=== PATIENT | female | born 1975 | race Caucasian/White ===

== ENCOUNTER 2018-06-12 07:46 | Outpatient (RCR) | payer MEDICAID, SELFPAY ==
--- NOTE | 2018-06-19 10:17 | HP.FCE ---
HP OT Functional Capacity Eval - Task Lift Floor (Occasional 1-33% of Day): 7lb Floor (Frequent 34-66% of Day): negligible Floor (Constant 67-100% of Day): negligible Floor PDL: Sedentary Knee (Occasional 1-33% of Day): 7lb Knee (Frequent 34-66% of Day): negligible Knee (Constant 67-100% of Day): negligible Knee PDL: Sedentary Waist (Occasional 1-33% of Day): 7lb Waist (Frequent 34-66% of Day): negligible Waist (Constant 67-100% of Day): negligible Waist PDL: Sedentary Shoulder (Occasional 1-33% of Day): 7lb Shoulder (Frequent 34-66% of Day): negligible Shoulder (Constant 67-100% of Day): negligible Shoulder PDL: Sedentary Overhead (Occasional 1-33% of Day): 7lb Overhead (Frequent 34-66% of Day): negligible Overhead (Constant 67-100% of Day): negligible Overhead PDL: Sedentary Comments: unemployed since Jul 31, 2016. after she was on light duty for 4 wks. Pt declined to carry more weight for lifting tasks. 7# was her max for all lifting when attempted more weight she attempted, but stated no more weight. See functional activities questionnaire for more details completed by pt. - Work Activity/Posture Bending: No Ablility (0% of day) Squatting: No Ablility (0% of day) Kneeling: No Ablility (0% of day) Reaching out: Constant Ability (67-100% of day) Reaching up: Constant Ability (67-100% of day) Sitting: Occasional Ability (1-33% of day) Walking: Frequent Ability (34-66% of day) Standing: Occasional Ability (1-33% of day) - Reference Duration Sedentary Sedentary Light Light Light Medium Medium Medium Heavy Very Heavy Heavy Occasional (0-33% of day) Frequent (34-66% of day) Constant (67-100% of day) 10 # Negligible Negligible 15 # 8 # Negligible 20 # 10# Negli. 35 # 18 # 7 # 50 # 25 # 10 # 75 # 100 # >100 # 38 # 50 # >50 # 15 # 20 # >20 # - Patient Information Height: 5 ft 4 in Weight:: 127.006 kg Hand Dominance: Right handed - Medical History Medical History Including Restrictions: Pt reports she has restrictions, not aloud to lift over 30lb, not suppose to be bending over, not suppose to sit for long periods, or walk long distances. Pt provided no written restrictions during the evaluation. Pt states the following medical hx: mild asthma, depression, broken tailbone June 2016, mild spinal stenosis, degenerative disc, several herniated disc, nerve impingement unspecified, fx R ankle . - Diagnoses Diagnoses: Pt seen for FCE with back pain as reason for visit. Pt states the following medical hx: mild asthma, depression, broken tailbone June 2016, mild spinal stenosis, degenerative disc, several herniated disc, nerve impingement unspecified, fx R ankle . - Symptoms Symptoms: Pt reports numbness in bilateral legs, back from dual ache to tightness pain. - Pain Pain: Medications: tramadol HCL 50MG, Fluoxetine HCL 20 MG, Bupropion HCL XL 300 MG. Pt states back from dual ache to tightness pain. 9/10 pain lower back sitting before physcial activity. 10/10 lower back pain with movement. 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 Unemployed since Jul 31, 2016. after she was on light duty for 4 wks. - ADLS ADLS: Pt reports she lives with sister in a two story house with 2 steps 1 handrail into main part of house then everything on main level of home. Sleeps in regular bed. Walk in shower, has shower chair available but doesn't use it, has grab bar she uses, std toilet seats with one grab bar. Independent with BADL's. Indep with meal prep tasks, sometimes has trouble lifting gallon of milk or putting a roast into oven if it's to heavy. Completes laundry independently on main level. AMB with rollator or cane in community, independently amb without device in house occassionally using furniture to walk. Has cane available. Drives. Pt reports she is uncomfortable to sit as passanger in car. Pt states she is able to get in/out of [place] using handle bars and side rails to assist her to go out in community. Will go to grocery store alone occassionally but typically has someone with her at store, family carries groceries in. Pt reports she will go to laundry mat with sister. - Physical Examination ROM: BUE WFL. BLE WFL Strength: Generalized R UE 4+/5, L UE 4-/5. Generalized R LE 3+/5, L LE 4/5 Right Photographic Spotter Strength Average: 65.00 Left Photographic Spotter Strength Average: 76.66 Right Lateral Pinch Average: 10.00 Left Lateral Pinch Average: 12.00 Right Tripod Pinch Average: 10.00 Left Tripod Pinch Average: 9.66 Sensation: Pt reports numbness in bilateral legs, L hand numbness 90% of day and tingling fingertips. Monofilament test 3.84 L hand. Fine Motor: Pt states independent with fine motor skills buttoning, zipping, states has difficulty with holding objects that don't have a good mobile lounge driver or operator or holding a pen that doesn't have a thicker mobile lounge driver or operator. Completed 9 hole peg test R 25.5 seconds L 27.4 seconds. Balance: Pt states 3 falls in april outside on cement porch, corner of garage, 1 fall in may outside taking dog to bathroom with dog on leash. - Non Material Handling Activities Bending: Pt attempted bending down to floor 1x unable to touch floor all the way. Pt states 10/10 lower back pain. Unable to complete task. Squattin squat using bilateral arms on table for support. Unable to complete more than one squat per pt. Kneeling: completed 1 kneel not able to take L knee to floor all the way or fully complete kneel or any other kneels. Reaching out/up: All reaching while standing. Able to reach up 3x, 10x, 10x fast, able to reach out to the left side 3x, 10x, 10x fast losing balance at end on L side, but able to self correct, R side reaching while standing 3x, 10x, 10x fast. Walking: completed 15 min walk test around facility slow pace using rollator without seated or standing rest break needed Standing: Pt would stand frequently for increased comfort during testing. Stood for 6 minutes in beginning of test before having to sit down again. Pt would frequently switch between sitting and standing during evaluation. Sitting: Pt able to sit for 9 minutes before having to stand for increased comfort while gathering information in beginning of evaluation. Pt would frequently switch between sitting in chair or on rollator and standing during evaluation. Climbing Stairs: Pt able to climb flight of 13 steps using bilateral handrails one step at a time slow pace throwing R leg out to side while climbing steps. - Dynamic Occasional Lifting Capacity Floor Lift: 7# max Knee Lift: 7# max Waist Lift: 7# max Shoulder Lift: 7# max Overhead Lift: 7# max Carryin# max carrying 15ft Comments: Pt declined to carry more weight for lifting tasks. 7# was her max for all lifting when attempted more weight she attempted, but stated no more weight. See functional activities questionnaire for more details completed by pt.
== END 2018-06-12 19:00 | disposition home or self-care (01) ==
LOC: OT 07:46
PROVIDERS: Family Provider Family Medicine; PCP Family Medicine; Referring Provider Anesthesiology Pain Medicine; Visit Provider Anesthesiology Pain Medicine
DX: M54.9 Dorsalgia, unspecified (principal)
CPT/HCPCS: 97165; 97167

== ENCOUNTER → 2018-10-17 12:05 | Outpatient (CLI) | payer MEDICAID, SELFPAY ==
[2018-10-17 15:40] LABS: Absolute Lymphocyte Count 1.89 X10^3/ul (0.83-4.51); Absolute Neutrophil Count 4.4 X10^3/uL (2.0-7.7); Basophil# 0.03 X10^3/uL; Basophil% 0.4 % (0-1); Eosinophil# 0.13 X10^3/uL; Eosinophils% 1.9 % (0-5); Hematocrit 43.6 % (37-47); Hemoglobin 13.9 g/dl (12.0-15.0); Lymphocyte # 1.89 X10^3/ul (4.0); Lymphocyte % 27.4 % (19-41); Mean Corp Hgb Conc 31.9 g/gl (32-36); Mean Corpuscular Hgb 30.5 pg (27.0-32.0); Mean Corpuscular Volume 95.8 fL (81-99); Mean Platelet Vol. 10.2 fl (6.2-12.0); Monocyte# 0.46 X10^3/uL; Monocyte% 6.7 % (0-10); Neutrophil # 4.37 X10^3/uL (2.7-7.7); Neutrophil % 63.5 % (47-70); Platelet Count 302 K/mm3 (150-450); RBC Distribution Width CV 13.2 % (11.6-14.6); RBC Distribution Width SD 45.2 fl (35.1-43.9); Red Blood Count 4.55 M/mm3 (4.2-5.4); White Blood Count 6.9 K/mm3 (4.4-11.0)
[2018-10-17 15:43] LABS: POSITIVE COUNT NO; POSITIVE DIFFERENTIAL NO; POSITIVE MORPHOLOGY NO
[2018-10-17 16:07] LABS: ALB/GLOB Ratio 0.9 RATIO (0.9-2.4); AST(SGOT) 13 U/L (15-37); Alanine Aminotransfer ALT/SGPT 23 U/L (13-56); Albumin, Serum 3.6 g/dL (3.2-5.0); Alkaline Phosphatase 105 U/L (45-117); Anion Gap 8 (5-15); BUN 11 mg/dL (7-18); BUN/Creat Ratio 12.7 RATIO (10-20); Chloride 106 mmol/L (98-107); Cholesterol 197 mg/dL (200); Creatinine, Serum 0.86 mg/dL (0.55-1.02); EST Glomerular Filtration Rate 75 mL/min (>60); Est Glom Filt Rate - Afr Amer 91 mL/min (>60); Ferritin 48 ng/mL (8-252); Globulin 4.1 g/dL (2.2-4.2); Glucose 84 mg/dL (74-106); High Density Lipoprotein 72 mg/dL; Iron 89 ug/dL (50-170); Potassium 4.2 mmol/L (3.5-5.1); Protein, Total 7.7 g/dL (6.4-8.2); Sodium Level 140 mmol/L (136-145); T4 Free Direct 0.96 ng/dL (0.76-1.46); Thyroid Stim Hormone (TSH) 1.75 uIU/mL (0.358-3.74); Triglycerides 89 mg/dL; Very Low Density Lipoprotein 18 mg/dL (5-40)
[2018-10-17 16:43] LABS: HIV - WCH Non-Reactive (Nonreactive)
[2018-10-17 17:46] LABS: Chlamydia Trachomatis by PCR Negative (Negative); Neisserai gonorrhoeae by PCR Negative (Negative); Probe Check PASS; Sample Adequacy Control PASS; Specimen Processing Control PASS
[2018-10-18 01:32] LABS: Rapid Plasmin Reagin (RPR) NONREACTIVE (NONREACTIVE)
== END ==
PROVIDERS: Family Provider Family Medicine; PCP Family Medicine; Visit Provider Family Medicine
DX: Z20.9 Contact with and (suspected) exposure to unspecified communicable disease (principal); Z20.2 Contact with and (suspected) exposure to infections with a predominantly sexual mode of transmission; R53.83 Other fatigue; E78.5 Hyperlipidemia, unspecified; D64.9 Anemia, unspecified
CPT/HCPCS: 36415; 80053; 80061; 82728; 83540; 84439; 84443; 85025; 86592; 86703; 87491; 87591

== ENCOUNTER → 2019-03-24 | Outpatient (CLI) | payer MEDICAID, SELFPAY ==
--- NOTE | 2019-03-24 06:44 | MRI_ITS ---
STUDY: MRI LUMBAR SPINE WITH AND WITHOUT CONTRAST REASON FOR EXAM: Female, 44 years old. Fall, low back pain. TECHNIQUE: Standardized fat and water weighted pulse sequences were obtained in the sagittal and axial planes. 26 IV Dotarem was administered for the contrast portion of the examination. COMPARISON: 08/15/2016 FINDINGS: T12-L1: Normal endplates. Normal disc height, hydration and morphology. Normal bilateral facet joints. Normal central canal and bilateral lateral recesses. Normal bilateral intervertebral neural foramina. Normal lumbar lordosis. There is no substantial scoliosis. Normal conus medullaris that terminates at the L1/L2. L1-2: No change in a mild bilobed disc protrusion which produces mild spinal stenosis and mild bilateral neural foraminal stenosis. L2-3: Normal endplates. Normal disc height, hydration and morphology. Normal bilateral facet joints. Normal central canal and bilateral lateral recesses. Normal bilateral intervertebral neural foramina. L3-4: Mild bilateral facet hypertrophy. Disc desiccation but no disc protrusion, spinal stenosis, or neural foraminal stenosis. L4-5: Mild bilateral facet hypertrophy and ligament flavum hypertrophy. Disc desiccation but no disc protrusion, spinal stenosis, or neural foraminal stenosis. L5-S1: Normal endplates. Normal disc height, hydration and morphology. Normal bilateral facet joints. Normal central canal and bilateral lateral recesses. Normal bilateral intervertebral neural foramina. Normal visualized sacral ala. Normal visualized paraspinous soft tissue structures. There is no demonstrated abnormal enhancement. MRI/Spine Lumbar W/WO Contrast IMPRESSION: No change from 08/15/2016. Electronically Signed: Kishor Reilly MD at 9:36 EDT Tel , Service support ,
--- NOTE | 2019-03-24 07:42 | RAD_ITS ---
STUDY: X-RAY - LEFT SHOULDER REASON FOR EXAM: Female, 44 years old. Pain. TECHNIQUE: 4 view(s) of the shoulder. COMPARISON: None. FINDINGS: Normal glenohumeral articulation. Normal acromioclavicular joint. Normal acromion. No acute fracture or dislocation. Normal humeral head and visualized proximal humerus. The soft tissue structures are unremarkable. Normal visualized pulmonary apex. RAD/Shoulder min 2 Views IMPRESSION: No acute fracture or dislocation. Electronically Signed: Kevin Nguyen DO at 21:58 EDT Tel [phone], Service support ,
== END | disposition home or self-care (01) ==
LOC: MRI 06:16
PROVIDERS: Family Provider Family Medicine; PCP Family Medicine; Referring Provider Family Medicine; Visit Provider Family Medicine
DX: M51.36 Other intervertebral disc degeneration, lumbar region (principal); M54.16 Radiculopathy, lumbar region; R29.898 Other symptoms and signs involving the musculoskeletal system
CPT/HCPCS: 72158; 73030; A9575

== ENCOUNTER 2019-04-02 13:00 | Outpatient (RCR) | payer MEDICAID, SELFPAY ==
--- NOTE | 2019-02-17 16:40 | HP.PTEVAL ---
Patient's Visit Information DORINA HESTER is a 44 year old F referred to Physical Therapy by Chayito Solis DO with a diagnosis of LUMBAR RADICULOPATHY. Date of Evaluation: 02/17/19 Physical Therapist: Sanjana Treviño PT, Cert MDT - Visit Plan Frequency: 2-3x /Week Duration: 4-6 Weeks Plan: AQUATIC THERAPY FOR PAIN RELEIF, POSTURE CORRECTION/STRENGTHENING, INSTRUCTION IN APPROPRIATE BODY MECHANICS AND ACTIVITY MODIFICATIONS. DLS WITH A NEUTRAL SPINE ONLY TOLERATED. MANINDER LE ROM, STRETCHING AND STRENGTHENING. HEP INSTRUCTION. - Subjective Findings: Work/Leisure: UNEMPLOYEED. Disability: NO. Present symptoms: LOW BACK PAIN AND MANINDER LE PAIN, NUMBNESS AND TINGLING TO TOES. Present since: ABOUT 2 YEARS. Pain Scale: WORST 9/10, LEAST 5/10. Currently: 9/10. Commenced as a result of: FELL AND BROKE TAILBONE ABOUT 2 YEARS AGO AT WORK AT [employer] IN [place]. Symptoms at onset: TAILBONE AND LOW BACK. Worse: PROLONGED SITTING, PROLONGED STANDING, WALKING LONG DISTANCES, BENDING, LIFTING, TWISTING, HOUSEWORK. Better: LYING DOWN, PAIN MEDICINE. Disturbed sleep: YES. Previous history/Previous treatment: PHYSICAL THERAPY IN AUG AND Sep BUT DIDN'T HELP ANY IN [place]. NAZIA X [address] TRUONG BUT DIDN'T HELP. NO BACK SURGERY. FCE IN MAY 2018 - [facility] [facility] WITH DR. LANIER PENDANASTASIA. Coughing/sneezing/straining: POSITIVE. Gait: PATIENT REPORTS THE DOCTORS HAVE TOLD HER TO USE HER CANE IN THE HOUSE BUT SHE DOESN'T BECAUSE SHE CAN FURNITURE WALK. SHE USES THE CANE IF SHE GOES TO A FRIENDS HOUSE. OUTSIDE SHE USES A ROLLATOR. Difficulty initiating urinatin: NO. Accidents: FALL TWO YEARS AGO - FX'D TAILBONE. HAS FALLEN AT LEAST ONCE A MONTH SINCE AUG 2018 WITH LAST FALL 2 DAYS AGO. NO OTHER FX'S FROM FALLS. PATIENT REPORTS SHE HAS NO IDEA WHY SHE IS FALLING. Unexplained weight loss: NO. Imaging: MRI OF LOW BACK AUG 2016 - PATIENT REPORTS IT SHOWED DDD, SEVERAL HERNIATED DISCS, MILD SPINAL STENOSIS AND SEVERAL SEVERE NERVE IMPINGEMENTS. MRI LUMBAR SPINE WITHOUT CONTRAST. REASON FOR EXAM: Female, 41 years old. Low back pain and right hip pain. after fall. TECHNIQUE: Standardized fat and water weighted pulse sequences were. obtained in the sagittal and axial planes. COMPARISON: Prior comparison studies are not available for review at this. time. . FINDINGS: T12-L1: Normal endplates. Normal disc height, signal and morphology. Normal bilateral facet joints. Normal central canal and bilateral lateral. recesses. Normal bilateral intervertebral neural foramina. Normal lumbar lordosis. There is no substantial scoliosis. Conus. medullaris that terminates at the L1-2 level. There is a focus of abnormal. signal within the distal spinal cord at the T12-L1 level measuring. approximately 7 mm in greatest dimension. This has bright T2 signal and is. isointense to normal spinal cord on the T1 images. L1-2: There is narrowing of this disc with loss of normal T2. hyperintensity and probable vacuum disc phenomenon. There is a moderate. annular disc bulge and broad central disc protrusion. There is moderate. degenerative arthropathy of facet joints. There is mild central acquired. canal stenosis. The neural foramina are mildly narrowed without evidence. for nerve impingement. L2-3: Normal endplates. Normal disc height, signal and morphology. There. is mild degenerative arthropathy of bilateral facet joints. Normal central. canal and bilateral lateral recesses. Normal bilateral intervertebral. neural foramina. L3-4: There is a mild annular disc bulge and osteophyte complex. There is. moderate degenerative arthropathy of facet joints. The neural foramina. bilaterally narrowed with questionable impingement of the right L3 nerve. root at the neural foramen. There is no significant central acquired canal. stenosis. L4-5: There is a mild annular disc bulge and osteophyte complex. There is. mild degenerative arthropathy of facet joints. Neural foramina are. bilaterally narrowed, greater on the left with questionable impingement of. the left L4 nerve root at the neural foramen. The right neural foramen is. narrowed without evidence for nerve impingement. L5-S1: There is a mild disc bulge and osteophyte complex. There is. moderate degenerative arthropathy of facet joints. There is no central. acquired canal stenosis. Neural foramina are moderately narrowed with. potential impingement of the L5 nerve roots at the neural foramina, left. greater than right. Normal visualized sacral ala. Normal visualized paraspinous soft tissue structures. . MRI/Spine Lumbar (Routine). IMPRESSION: Moderately severe degenerative disc disease and degenerative arthropathy. lumbar spine with acquired canal stenosis, neural foraminal narrowing and. potential nerve impingement as described. PMH: OLD RIGHT FOOT FX 30 YEARS AGO WITH PROBLEMS EVER SINCE. ASTHMA, DEPRESSION. Recent major surgery: UNREMARKABLE. - Objective Sitting/Standing Posture: POOR. Lordosis: NORMAL. Lateral shift: NO. Relevant shift: N/A. Active Correction of posture: WORSE. Other Observations: THIS PATIENT AMBULATES INDEP'LY INTO PT WITH A ROLLATOR X APPROX 300 FEET WITH SLOW STEADY CADANCE AND SLIGHT INCREASED TRUNK FLEXION. SHE WALKS WITH DECREASED MANINDER STRIDE LENGTH. SHE IS UNABLE TO SLS ON EITHER LE WITHOUT UE ASSIST. SHE IS ABLE TO INDEP'LY TRANSFER FROM SIT TO STAND AND REVERSE WITH UE ASSIST. Motor deficit: DECREASED MANINDER LE STRENGTH. RIGHT: HIP 3/5, KNEE EXT 4-/5, KNEE FLEX 4-/5, ANKLE 4-/5. LEFT HIP 3+/5, KNEE EXT 4/5, KNEE FLEX 4/5, ANKLE 4/5. Sensory deficit: MANINDER LE LIGHT TOUCH SENSATION IS INTACT AND SYMMETRICAL. ROM deficit: VERY TIGHT MANINDER HIP ROTATION AND HIP FLEXION. Reflexes: UNALBE TO ELICIT MANINDER LE DTR'S. Dural Signs: POSITIVE MANINDER LE'S. Lumbar mvmt loss: NT. Core strength: POOR. Palpation: VERY TENDER FORM LUMBAR SPINE DOWN WTIH LIGHT PALPATION. - Goals Goal 1:: DECREASE C/O LOW BACK AND MANINDER LE SX'S. Goal Time Frame: 4-6 Weeks Goal 2:: IMPROVE PERSONAL CARE, LIFTING, WALKING, STANDING, SITTING, SLEEP, SOCIAL LIFE, TRAVEL AND HOMEMAKING FUNCTION Goal Time Frame: 4-6 Weeks Goal 3:: INSTRUCT IN PROPHYLAXIS Goal Time Frame: 4-6 Weeks - Rehabilitation Potential Rehabilitation Potential: Fair - Anticipated Interventions Patient/Client Instruction: Educate patient on: Condition, Plan of Care, Risk Factors, Benefits of Fitness Program For the Purpose of:: To improve self management Therapeutic Exercise to Include: Strength training, Body mechanics, Postural training, Gait and locomotor training, In an aquatic setting, Dynamic Lumbar Stabilization For the Purpose of:: To decrease pain, To improve muscle performance and motor function, To increase tolerance to activity/condition/position, To improve ability of physical actions for home/community/work/leisure Thank you for the opportunity to evaluate your patient. For Medicare and Medicare HMO plans, please review the plan of care and approve it. It will need to be FAXED BACK to us at [phone] for Medicare purposes. For Medicare only, by signing this I certify the plan of care. Please let me know if there are questions or concerns regarding this plan of care. Physician Signature: Date:
--- NOTE | 2019-04-02 13:26 | HP.PTDCSUM ---
HP - PT D/C Summary It has been my pleasure to treat DORINA HESTER under orders from Chayito Solis DO, for the diagnosis of LUMBAR RADICULOPATHY for a total of 10 visit(s). Discharge Date: Please see the following information for a summary of their discharge status. - Subjective Subjective: PATIENT REPORTS HER RECENT MRI LAST SUNDAY SHOWED NO SIGNIFICANT CHANGES COMPARED TO 2017 ACCORDING TO JULES. PATIENT REPORTS SHE IS NO BETTER AND NO WORSE SINCE STARTING PT THIS EPISODE. CONSULT WITH DR. LANIER PENDING APR 22 2019. PATIENT STATES SHE DOES NOT WANT TO CONTINUE PT AT THIS TIME. PATIENT REPORTS THAT BASED ON TALKING TO A LOT OF PEOPLE SHE DOES NOT THINK SHE WILL HAVE BACK SURGERY EVEN IF DR. LANIER RECOMMENDS IT. - Pain RLE Pain Intensity (Out of 10): 10 Lumbar Spine Pain Intensity (Out of 10): 10 - Overall Improvement % Improvement: 0 - Objective Objective/Function: UPON EXAM TODAY THERE ARE NO SIGNIFICANT CHANGES COMPARED TO INITIAL EVAL FEBRUARY 17 2019 EXCEPT FOR MMT'ING OF LE'S. UPON EXAM TODAY: RIGHT: HIP 3/5, KNEE EXT 4/5, KNEE FLEX 4-/5, ANKLE 4/5. LEFT HIP 4-/5, KNEE EXT 5/5, KNEE FLEX 5/5, ANKLE 5/5. - Goals Goal 1:: DECREASE C/O LOW BACK AND MANINDER LE SX'S. Goal Progress: Not Progressing Goal 2:: IMPROVE PERSONAL CARE, LIFTING, WALKING, STANDING, SITTING, SLEEP, SOCIAL LIFE, TRAVEL AND HOMEMAKING FUNCTION Goal Progress: Not Progressing Goal 3:: INSTRUCT IN PROPHYLAXIS Goal Progress: Not Progressing - Plan Plan: D/C DUE TO LACK OF PROGRESS. PHYSICIAN RE-ASSESSMENT RECOMMENDED. PATIENT AGREEABLE - PLANS TO SEE DR. LANIER NEXT MONTH. - D/C Information If there are questions or concerns regarding this patient's physical therapy, please feel free to call me at [phone]. Thank you for the referral of this patient. Sincerely, Sanjana Treviño, PT, Cert MDT
== END 2019-04-02 19:00 | disposition home or self-care (01) ==
LOC: PT 13:00
PROVIDERS: Family Provider Family Medicine; PCP Family Medicine; Referring Provider Family Medicine; Visit Provider Family Medicine
DX: M54.16 Radiculopathy, lumbar region (principal); M51.36 Other intervertebral disc degeneration, lumbar region
CPT/HCPCS: 97113; 97162; 97530

== ENCOUNTER → 2019-06-03 10:36 | Outpatient (CLI) | payer MEDICAID, SELFPAY ==
--- NOTE | 2019-06-03 10:38 | RAD_ITS ---
STUDY: X-RAY - LUMBAR SPINE REASON FOR EXAM: Female, 44 years old. Pain TECHNIQUE: 4 view(s) of the lumbar spine were obtained. COMPARISON: None FINDINGS: Normal lumbar lordosis. There is no substantial scoliosis. There is a normal alignment of the vertebrae. There is mild diffuse endplate spondylosis. There is narrowing of the L3-4 and L4-5 disc spaces. There is no demonstrated fracture. The soft tissue structures are unremarkable. RAD/L/S Spine Min 4 Views IMPRESSION: Narrowing of the L3-4 and L4-5 disc spaces. Mild diffuse endplate spondylosis. Electronically Signed: Maynor Gonzalez MD at 22:21 EDT , Service support ,
== END ==
PROVIDERS: Family Provider Family Medicine; PCP Family Medicine; Referring Provider Orthopaedic Surgery; Visit Provider Orthopaedic Surgery
DX: M54.5 Low back pain (principal)
CPT/HCPCS: 72110

== ENCOUNTER → 2019-07-09 05:55 | Outpatient (CLI) | payer MEDICAID, SELFPAY ==
--- NOTE | 2019-07-09 05:56 | MRI_ITS ---
STUDY: MRI CERVICAL SPINE WITHOUT CONTRAST REASON FOR EXAM: Female, 44 years old. Abnormal gait TECHNIQUE: Standardized fat and water weighted pulse sequences were obtained in the sagittal and axial planes. COMPARISON: None FINDINGS: Normal foramen magnum and brainstem-cervical cord junction. Normal craniovertebral junction. There are degenerative changes of the anterior atlantoaxial articulation. Normal odontoid process. Normal cervical lordosis. Normal vertebral bodies and posterior osseous elements. C2-3: Endplate spondylosis. Central and paracentral disc bulge. Degenerative changes of the bilateral facet joints and uncovertebral joints. Moderate narrowing of the central canal. Normal bilateral intervertebral neural foramina. C3-4: Endplate spondylosis. Central and paracentral disc bulge. Degenerative changes of the bilateral facet joints and uncovertebral joints. Moderate narrowing of the central canal. Mild narrowing of the bilateral intervertebral neural foramina. C4-5: Normal endplates. Normal disc height, signal and morphology. Normal central canal and intervertebral neural foramina. C5-6: Endplate spondylosis. Central and paracentral disc bulge. Degenerative changes of the bilateral facet joints and uncovertebral joints. Moderate narrowing of the central canal. Mild right and severe left intervertebral neural foraminal narrowing. C6-7: Endplate spondylosis. Central and paracentral disc bulge. Degenerative changes of the bilateral facet joints and uncovertebral joints. Moderate narrowing of the central canal. Mild right and moderate left intervertebral neural foraminal narrowing. C7-T1: Normal endplates. Normal disc height, signal and morphology. Normal central canal and intervertebral neural foramina. Ill-defined areas of increased T2 signal are seen in the cervical spine cord at C2-3, C3-4, C5-6 and T1 suggesting demyelinating lesions. Normal visualized soft tissue structures. MRI/Spine Cervical (Routine) IMPRESSION: Multilevel degenerative changes, as described above. Ill-defined areas of increased T2 signal are seen in the cervical spine cord at C2-3, C3-4, C5-6 and T1 suggesting demyelinating lesions. Electronically Signed: Warren Mohr, at 6:07 EST Tel , Service support ,
== END ==
PROVIDERS: Family Provider Family Medicine; PCP Family Medicine; Referring Provider Orthopaedic Surgery; Visit Provider Orthopaedic Surgery
DX: R26.9 Unspecified abnormalities of gait and mobility (principal); Z71.3 Dietary counseling and surveillance; E66.01 Morbid (severe) obesity due to excess calories; Z68.42 Body mass index [BMI] 45.0-49.9, adult
CPT/HCPCS: 72141; 97802

== ENCOUNTER 2019-07-09 07:53 | Outpatient (RCR) | payer MEDICAID, SELFPAY | END 2019-07-09 23:59 | disposition home or self-care (01) | LOC: NS 07:53 | PROVIDERS: Family Provider Family Medicine; PCP Family Medicine; Visit Provider Orthopaedic Surgery | DX: Z71.3 Dietary counseling and surveillance (principal); Z68.42 Body mass index [BMI] 45.0-49.9, adult; E66.01 Morbid (severe) obesity due to excess calories | CPT/HCPCS: 97802 ==

== ENCOUNTER → 2019-07-18 14:49 | Outpatient (CLI) | payer MEDICAID, SELFPAY ==
--- NOTE | 2019-07-18 14:50 | MRI_ITS ---
STUDY: MRI THORACIC SPINE WITHOUT CONTRAST REASON FOR EXAM: Female, 44 years old. Low-back pain TECHNIQUE: Standardized fat and water weighted pulse sequences were obtained in the sagittal and axial planes. COMPARISON: None. FINDINGS: Normal kyphosis of the thoracic spine. There is no substantial scoliosis. No evidence for acute fracture or subluxation. There are multifocal lipomatous deposits or interosseous hemangiomata. There is multilevel disc space narrowing and disc degeneration. There is a small left paracentral disc protrusion at T9-T10 narrowing the spinal canal mildly compressing the cord. . There is a small right paracentral disc protrusion at T8-9 narrowing the spinal canal and mildly compressing the cord. There is a small right paracentral disc protrusion at T7-8 mildly narrowing the spinal canal without cord impingement. There is a small right paracentral disc protrusion at T4-5 mildly narrowing the central canal without cord compression Normal visualized thoracic cord. Normal conus medullaris that terminates at T12-L1 The soft tissue structures are unremarkable. MRI/Spine Thoracic (Routine) IMPRESSION: Moderate spondylosis and multilevel disc degeneration. Disc protrusions at T9-10 and T8-9 mildly compressing the cord at both levels Disc protrusions at T4-5 and T7-8 without cord impingement. Electronically Signed: Milton Corbett MD at 16:50 EST , Service support ,
== END ==
PROVIDERS: Family Provider Family Medicine; PCP Family Medicine; Referring Provider Orthopaedic Surgery; Visit Provider Orthopaedic Surgery
DX: R26.9 Unspecified abnormalities of gait and mobility (principal)
CPT/HCPCS: 72146

== ENCOUNTER → 2020-03-29 16:18 | Outpatient (CLI) | payer MEDICAID, SELFPAY ==
[2020-03-29 17:35] LABS: Absolute Lymphocyte Count 1.89 X10^3/uL (0.83-4.51); Absolute Neutrophil Count 7.4 X10^3/uL (2.0-7.7); Basophil# 0.03 X10^3/uL; Basophil% 0.3 % (0-1); Eosinophil# 0.12 X10^3/uL; Eosinophils% 1.2 % (0-5); Hematocrit 36.6 % (37-47); Hemoglobin 11.7 g/dL (12.0-15.0); Lymphocyte # 1.89 X10^3/ul (4.0); Lymphocyte % 18.5 % (19-41); Mean Corpuscular Hgb 31.3 pg (27.0-32.0); Mean Corpuscular Volume 97.9 fL (81-99); Mean Platelet Vol. 9.5 fl (6.2-12.0); Monocyte# 0.71 X10^3/uL; NRBC Flagged by Analyzer 0 % (0-5); Neutrophil # 7.43 X10^3/uL (2.7-7.7); Neutrophil % 72.8 % (47-70); Platelet Count 327 K/mm3 (150-450); RBC Distribution Width CV 14.4 % (11.6-14.6); RBC Distribution Width SD 51.1 fl (35.1-43.9); Red Blood Count 3.74 M/mm3 (4.2-5.4); White Blood Count 10.2 K/mm3 (4.4-11.0)
[2020-03-29 17:46] LABS: ALB/GLOB Ratio 0.7 RATIO (0.9-2.4); AST(SGOT) 33 U/L (15-37); Alanine Aminotransfer ALT/SGPT 40 U/L (13-56); Albumin, Serum 3.2 g/dL (3.2-5.0); Alkaline Phosphatase 132 U/L (45-117); Anion Gap 6 (5-15); BUN 14 mg/dL (7-18); BUN/Creat Ratio 15.4 RATIO (10-20); Calcium,Total 8.9 mg/dL (8.5-10.1); Chloride 101 mmol/L (98-107); Creatinine, Serum 0.91 mg/dL (0.55-1.02); EST Glomerular Filtration Rate 71 mL/min (>60); Est Glom Filt Rate - Afr Amer 85 mL/min (>60); Globulin 4.6 g/dL (2.2-4.2); Glucose 85 mg/dL (74-106); Potassium 3.3 mmol/L (3.5-5.1); Protein, Total 7.8 g/dL (6.4-8.2); Sodium Level 138 mmol/L (136-145)
== END ==
PROVIDERS: PCP Family Medicine; Visit Provider Family Medicine
DX: D64.9 Anemia, unspecified (principal); Z51.81 Encounter for therapeutic drug level monitoring
CPT/HCPCS: 36415; 80053; 85025

== ENCOUNTER → 2023-04-11 | Outpatient (CLI) | payer MEDICARE, SELFPAY ==
[2023-04-11 12:20] LABS: Absolute Neutrophil Count 6.5 X10^3/uL (2.0-7.7); Basophil# 0.03 X10^3/uL; Basophil% 0.3 % (0-1); Eosinophil# 0.24 X10^3/uL; Eosinophils% 2.7 % (0-5); Hematocrit 41.4 % (37-47); Lymphocyte % 11.4 % (19-41); Mean Corp Hgb Conc 31.4 g/dL (32-36); Mean Corpuscular Hgb 31.3 pg (27.0-32.0); Mean Corpuscular Volume 99.5 fL (81-99); Mean Platelet Vol. 10.3 fl (6.2-12.0); Monocyte# 0.93 X10^3/uL; Monocyte% 10.6 % (0-10); NRBC Flagged by Analyzer 0 % (0-5); Neutrophil # 6.54 X10^3/uL (2.7-7.7); Neutrophil % 74.8 % (47-70); Platelet Count 345 K/mm3 (150-450); RBC Distribution Width CV 13.2 % (11.6-14.6); RBC Distribution Width SD 48.2 fl (35.1-43.9); Red Blood Count 4.16 M/mm3 (4.2-5.4); White Blood Count 8.8 K/mm3 (4.4-11.0)
[2023-04-11 12:47] LABS: Hemoglobin A1c 5.5 % (3.8-5.6)
[2023-04-11 12:50] LABS: Vitamin B12 311 pg/mL (211-911)
[2023-04-11 13:02] LABS: ALB/GLOB Ratio 0.8 RATIO (0.9-2.4); AST(SGOT) 26 U/L (15-37); Alanine Aminotransfer ALT/SGPT 58 U/L (13-56); Albumin, Serum 3.3 g/dL (3.2-5.0); Alkaline Phosphatase 185 U/L (45-117); Anion Gap 6 (5-15); BUN 16 mg/dL (7-18); BUN/Creat Ratio 18.2 RATIO (10-20); Calcium,Total 9.7 mg/dL (8.5-10.1); Chloride 105 mmol/L (98-107); Cholesterol 189 mg/dL (200); Creatinine, Serum 0.88 mg/dL (0.55-1.02); EST Glomerular Filtration Rate 72 mL/min (>60); Est Glom Filt Rate - Afr Amer 87 mL/min (>60); Ferritin 56 ng/mL (8-252); Globulin 4.3 g/dL (2.2-4.2); Glucose 85 mg/dL (74-106); High Density Lipoprotein 51 mg/dL; Iron 49 ug/dL (50-170); Protein, Total 7.6 g/dL (6.4-8.2); Sodium Level 138 mmol/L (136-145); Triglycerides 205 mg/dL; Very Low Density Lipoprotein 41 mg/dL (5-40)
== END | disposition home or self-care (01) ==
PROVIDERS: PCP Family Medicine; Referring Provider Family Medicine; Visit Provider Family Medicine
DX: G35 Multiple sclerosis (principal); Z51.81 Encounter for therapeutic drug level monitoring; D64.9 Anemia, unspecified; E55.9 Vitamin D deficiency, unspecified; R73.01 Impaired fasting glucose; G62.9 Polyneuropathy, unspecified
CPT/HCPCS: 36415; 80053; 80061; 82306; 82607; 82728; 83036; 83540; 85025

== ENCOUNTER → 2023-10-09 | Outpatient (CLI) | payer MEDICARE, SELFPAY ==
[2023-10-09 16:12] LABS: Vitamin B12 815 pg/mL (211-911)
[2023-10-09 16:43] LABS: ALB/GLOB Ratio 0.8 RATIO (0.9-2.4); AST(SGOT) 27 U/L (15-37); Alanine Aminotransfer ALT/SGPT 49 U/L (13-56); Albumin, Serum 3.3 g/dL (3.2-5.0); Alkaline Phosphatase 207 U/L (45-117); Anion Gap 10 (5-15); BUN 19 mg/dL (7-18); BUN/Creat Ratio 15.2 RATIO (10-20); Chloride 103 mmol/L (98-107); Creatinine, Serum 1.25 mg/dL (0.55-1.02); EST Glomerular Filtration Rate 48 mL/min (>60); Est Glom Filt Rate - Afr Amer 58 mL/min (>60); GGTP 111 U/L (5-55); Globulin 4.3 g/dL (2.2-4.2); Glucose 143 mg/dL (74-106); Iron 57 ug/dL (50-170); Potassium 3.6 mmol/L (3.5-5.1); Protein, Total 7.6 g/dL (6.4-8.2); Sodium Level 139 mmol/L (136-145)
[2023-10-11 15:08] LABS: Alkaline Phosphatase, Serum 224 IU/L (44-121); Bone Fraction 29 % (14-68); Intestinal Fraction 6 % (0-18); Liver Fraction 65 % (18-85)
== END | disposition home or self-care (01) ==
LOC: BFHLAB 13:04
PROVIDERS: PCP Family Medicine; Visit Provider Family Medicine
DX: E53.8 Deficiency of other specified B group vitamins (principal); E61.1 Iron deficiency; R74.8 Abnormal levels of other serum enzymes
CPT/HCPCS: 36415; 80053; 82607; 82977; 83540; 84075; 84080

== ENCOUNTER → 2023-11-29 | Outpatient (CLI) | payer MEDICARE, SELFPAY ==
[2023-11-29 18:12] LABS: Absolute Lymphocyte Count 0.76 X10^3/uL (0.83-4.51); Absolute Neutrophil Count 6.6 X10^3/uL (2.0-7.7); Basophil# 0.04 X10^3/uL; Basophil% 0.5 % (0-1); Eosinophil# 0.26 X10^3/uL; Eosinophils% 3.2 % (0-5); Hematocrit 41.4 % (37-47); Hemoglobin 12.8 g/dL (12.0-15.0); Lymphocyte # 0.76 X10^3/ul (0.83-4.51); Lymphocyte % 9.2 % (19-41); Mean Corp Hgb Conc 30.9 g/dL (32-36); Mean Corpuscular Hgb 30.6 pg (27.0-32.0); Mean Platelet Vol. 10.1 fl (6.2-12.0); Monocyte# 0.59 X10^3/uL; Monocyte% 7.2 % (0-10); NRBC Flagged by Analyzer 0 % (0-5); Neutrophil # 6.58 X10^3/uL (2.7-7.7); Neutrophil % 79.7 % (47-70); POSITIVE COUNT YES; Platelet Count 314 K/mm3 (150-450); RBC Distribution Width CV 13.9 % (11.6-14.6); RBC Distribution Width SD 50.6 fl (35.1-43.9); Red Blood Count 4.18 M/mm3 (4.2-5.4); White Blood Count 8.3 K/mm3 (4.4-11.0)
[2023-11-29 18:18] LABS: Differential Indicated SCAN CRITERIA MET
[2023-11-29 18:28] LABS: ALB/GLOB Ratio 0.8 RATIO (0.9-2.4); AST(SGOT) 28 U/L (15-37); Alanine Aminotransfer ALT/SGPT 51 U/L (13-56); Albumin, Serum 3.2 g/dL (3.2-5.0); Alkaline Phosphatase 187 U/L (45-117); Anion Gap 3 (5-15); BUN 15 mg/dL (7-18); BUN/Creat Ratio 16.4 RATIO (10-20); Calcium,Total 9.6 mg/dL (8.5-10.1); Chloride 107 mmol/L (98-107); Creatinine, Serum 0.92 mg/dL (0.55-1.02); EST Glomerular Filtration Rate 69 mL/min (>60); Est Glom Filt Rate - Afr Amer 83 mL/min (>60); GGTP 89 U/L (5-55); Globulin 4.1 g/dL (2.2-4.2); Glucose 120 mg/dL (74-106); Potassium 4.4 mmol/L (3.5-5.1); Protein, Total 7.3 g/dL (6.4-8.2); Sodium Level 139 mmol/L (136-145)
[2023-11-29 18:45] LABS: Differential Comment SCANNED
== END | disposition home or self-care (01) ==
LOC: BFHLAB 15:31
PROVIDERS: PCP Family Medicine; Visit Provider Family Medicine
DX: R74.8 Abnormal levels of other serum enzymes (principal); Z51.81 Encounter for therapeutic drug level monitoring
CPT/HCPCS: 36415; 80053; 82977; 85025

== ENCOUNTER → 2024-01-09 | Outpatient (CLI) | payer MEDICARE, SELFPAY ==
--- NOTE | 2024-01-09 10:39 | US_ITS ---
INDICATION: ELEVATED LIVER ENZYMES EXAMINATION: Ultrasound US Abdomen Limited (quadrant) TECHNIQUE: Carbajal scale and color doppler imaging was performed of the right upper quadrant. COMPARISON: No relevant prior comparison study available FINDINGS: LIVER: The liver is enlarged measuring about 20.4 cm in length and is heterogeneous echogenic in texture. The portal vein is patent with normal hepatopedal flow. No focal hepatic lesion. There is no free fluid. GALLBLADDER AND BILIARY TREE: No shadowing gallstone, pericholecystic fluid or gallbladder wall thickening is demonstrated. The gallbladder wall measures 1 mm. The proximal common bile duct measures 2.3 mm, which is within normal limits for the patient''s age. Sonographic Barrett''s sign: Negative. PANCREAS: The pancreas appears echogenic in texture but is suboptimally visualized. RIGHT KIDNEY: The right kidney measures 11.6 cm in length. The renal cortex measures 1 cm. No evidence of hydronephrosis. US/Abdomen Limited IMPRESSION: 1. Hepatomegaly. 2. Echogenic heterogeneous liver which may reflect fatty infiltration or hepatocellular disease. 3. No evidence of gallstones. Electronically Signed: Adonis Alonzo MD at 12:21 EDT ,
== END | disposition home or self-care (01) ==
PROVIDERS: PCP Family Medicine; Referring Provider Family Medicine; Visit Provider Family Medicine
DX: R74.8 Abnormal levels of other serum enzymes (principal)
CPT/HCPCS: 76705

== ENCOUNTER → 2024-06-17 | Outpatient (CLI) | payer MEDICARE, SELFPAY ==
[2024-06-17 17:44] LABS: Absolute Lymphocyte Count 1.17 X10^3/uL (0.83-4.51); Absolute Neutrophil Count 6.6 X10^3/uL (2.0-7.7); Basophil# 0.04 X10^3/uL; Basophil% 0.4 % (0-1); Eosinophils% 3.3 % (0-5); Hemoglobin 13.2 g/dL (12.0-15.0); Lymphocyte # 1.17 X10^3/ul (0.83-4.51); Lymphocyte % 12.9 % (19-41); Mean Corp Hgb Conc 32.2 g/dL (32-36); Mean Corpuscular Volume 96.2 fL (81-99); Mean Platelet Vol. 10.3 fl (6.2-12.0); Monocyte# 0.92 X10^3/uL; Monocyte% 10.1 % (0-10); NRBC Flagged by Analyzer 0 % (0-5); Neutrophil # 6.61 X10^3/uL (2.7-7.7); Platelet Count 332 K/mm3 (150-450); RBC Distribution Width CV 13.9 % (11.6-14.6); Red Blood Count 4.26 M/mm3 (4.2-5.4); White Blood Count 9.1 K/mm3 (4.4-11.0)
[2024-06-17 17:47] LABS: International Normalized Ratio 0.9; Prothrombin Time (Protime)PT. 12.6 SECONDS (11.7-14.9)
[2024-06-17 18:16] LABS: Vitamin B12 1394 pg/mL (211-911)
[2024-06-17 18:36] LABS: ALB/GLOB Ratio 0.8 RATIO (0.9-2.4); AST(SGOT) 31 U/L (15-37); Alanine Aminotransfer ALT/SGPT 67 U/L (13-56); Albumin, Serum 3.4 g/dL (3.2-5.0); Alkaline Phosphatase 254 U/L (45-117); Anion Gap 8 (5-15); BUN 14 mg/dL (7-18); BUN/Creat Ratio 17.5 RATIO (10-20); Calcium,Total 9.6 mg/dL (8.5-10.1); Chloride 104 mmol/L (98-107); EST Glomerular Filtration Rate 80 mL/min (>60); Est Glom Filt Rate - Afr Amer 97 mL/min (>60); Globulin 4.3 g/dL (2.2-4.2); Glucose 90 mg/dL (74-106); Potassium 4.2 mmol/L (3.5-5.1); Protein, Total 7.7 g/dL (6.4-8.2); Sodium Level 139 mmol/L (136-145)
== END | disposition home or self-care (01) ==
LOC: BFHLAB 15:38
PROVIDERS: PCP Family Medicine; Referring Provider Family Medicine; Visit Provider Family Medicine
DX: G35 Multiple sclerosis (principal); Z51.81 Encounter for therapeutic drug level monitoring; R74.8 Abnormal levels of other serum enzymes; R58 Hemorrhage, not elsewhere classified; E55.9 Vitamin D deficiency, unspecified
CPT/HCPCS: 36415; 80053; 82306; 82607; 85025; 85610

== ENCOUNTER → 2025-02-19 | Outpatient (CLI) | payer MEDICARE, SELFPAY ==
[2025-02-19 17:41] LABS: Hematocrit 38.7 % (37-47); Hemoglobin 12.4 g/dL (12.0-15.0); Immature Granulocytes Count 0.020 X10^3/uL (0.0-0.0); Mean Corp Hgb Conc 32.0 g/dL (32-36); Mean Corpuscular Volume 95.6 fL (81-99); Mean Platelet Vol. 10.0 fl (6.2-12.0); NRBC Flagged by Analyzer 0 % (0-5); POSITIVE DIFFERENTIAL YES; Platelet Count 312 K/mm3 (150-450); RBC Distribution Width CV 13.8 % (11.6-14.6); RBC Distribution Width SD 48.7 fl (35.1-43.9); Red Blood Count 4.05 M/mm3 (4.2-5.4); White Blood Count 8.8 K/mm3 (4.4-11.0)
[2025-02-19 18:37] LABS: AST(SGOT) 36 U/L (<=31); Alanine Aminotransfer ALT/SGPT 69 U/L (<=34); Albumin, Serum 3.7 g/dL (3.5-5.0); Alkaline Phosphatase 202 U/L (35-104); Anion Gap 12 (5-15); BUN 16 mg/dL (4-19); BUN/Creat Ratio 18.3 RATIO (10-20); Calcium,Total 9.7 mg/dL (7.6-11.0); Carbon Dioxide 24.8 mmol/L (21.0-32.0); Chloride 103 mmol/L (98-108); Globulin 3.1 g/dL (2.2-4.2); Glucose 129 mg/dL (70-99); Potassium 4.3 mmol/L (3.3-5.1)
[2025-02-19 18:40] LABS: Vitamin B12 1235 pg/mL (180-914)
[2025-02-21 04:07] LABS: GGTP 98 IU/L (0-60)
== END | disposition home or self-care (01) ==
PROVIDERS: PCP Family Medicine; Visit Provider Family Medicine
DX: Z51.81 Encounter for therapeutic drug level monitoring (principal); G35 Multiple sclerosis; R73.01 Impaired fasting glucose; R74.8 Abnormal levels of other serum enzymes
CPT/HCPCS: 36415; 80053; 82607; 82977; 83036; 85025